=== PATIENT | male | born 1950 | race Caucasian/White ===

== ENCOUNTER 2017-08-07 07:20 | Day surgery (SDC) | payer MEDICARE ==
[~2017-08-07] VITALS: Ht 185.4 cm; Wt 79.4 kg
[~2017-08-07 07:20] MED LIST: ALLOPURINOL100 MG PO; AMLODIPINE5 MG OR; AMOXICILLIN500 MG OR; AUGMENTIN875TAB OR; BENICAR HCT1 TAB OR; BENICAR20 MG OR; BUMETANIDE0.5 MG OR; BUMETANIDE0.5 MG PO; BUMEX PO; C 250 PO; CALTRATE 600+D PO; CALTRATE 602 PO; CAPSAICIN EX; CIPRODEX1 ML OD; CLOTRIM/BET1 EX; CORTISPORIN OTI10 M2 AD; CYANOCOBALAM1000 MCG IJ; CYANOCOBALAM1000 MCG IM; CYANOCOBALAM1000 MCG PO; CYTOMEL5 MCG PO; ECOTRIN325 MG OR; FERROUS SULF325 M1 PO; FLUARIX QUADRIV1 IN1 IM; FLUZONE SPLT1 M1 IM; HYDROCODONE/ACE1 TAB PO; KEFLEX500 MG PO; KETOCONAZOLE2 % EX; KETOCONAZOLE200 MG PO; LEVOTHROID75 MCG PO; LEVOTHYROXIN150 MC1 PO; LEVOTHYROXIN75 MCG PO; LEVOTHYROXINE100 MCG PO; LIPITOR10 M1 PO; LISINOPRIL2.5 MG PO; LISINOPRIL5 MG PO; LORTAB 5/3255 MG PO; LOTENSIN5 MG OR; METOPROL TAR25 MG PO; MIRALAX3350 N1 PO; MULTIVITAMI9 PO; NEURONTIN100 MG OR; NIZORAL2 % EX; NORVASC PO; NORVASC5 MG PO; OMEGA OR; OXYCODONE15 MG OR; PERCOCET 5/325M1 TAB PO; PERCOCET1 TA3 PO; ROCALTROL0.5 MC1 OR; ROCALTROL0.5 MC1 PO; ROCEPHIN 1 GM1 GM IM; SENNOSIDES8.6 M1 OR; SODIUM BICAR650 MG PO; SYNTHROID50 MCG OR; ULORIC40 MG OR; ULORIC40 MG PO; VALSARTAN40 MG PO; VICODIN1 TAB OR; VITAMIN A PO; VITAMIN B-12500 MCG PO; VITAMIN D31000 UNI1 PO; VITAMIN OR; VOLTAREN1 % EX; ZEMPLAR1 MCG OR; ZEMPLAR2 MCG OR; ZESTRIL10 M1 PO; [UNRECOGNIZED DRUG - OTHER] OR; [UNRECOGNIZED DRUG - OTHER] OR; [UNRECOGNIZED DRUG - OTHER] PO; [UNRECOGNIZED DRUG - OTHER] PO; allo PO
[2017-08-07] MEDS ORDERED: PYRIDIUM200 MG PO (09:39)
[2017-08-07] MEDS ORDERED: TAMSULOSIN0.4 MG PO (09:39)
[2017-08-07] MEDS ORDERED: TRAMADOL HCL50 MG PO (09:39)
[2017-08-07] MEDS ORDERED: VESICARE5 M1 PO (09:39)
[2017-08-07] MEDS ORDERED: Levaquin PO (09:39)
[2017-08-07 11:12] VITALS: BP 168/93
== END 2017-08-07 11:50 | disposition home or self-care (01) ==
LOC: ORM 07:20
PROVIDERS: ATTEND Urology
PROC: 0T7D8DZ Dilation of Urethra with Intraluminal Device, Via Natural or Artificial Opening Endoscopic (ICD-10-PCS; principal; 2017-08-07)
DX: N40.1 Benign prostatic hyperplasia with lower urinary tract symptoms (principal); R39.14 Feeling of incomplete bladder emptying; R35.1 Nocturia; R39.15 Urgency of urination; N32.89 Other specified disorders of bladder; I10 Essential (primary) hypertension; E03.9 Hypothyroidism, unspecified
CPT/HCPCS: J1956; L8699

== ENCOUNTER 2017-08-09 18:06 | Emergency (ER) | payer MEDICARE ==
[~2017-08-09] VITALS: Ht 185.4 cm; Wt 100.0 kg
[~2017-08-09 18:06] MED LIST changes: +Levaquin PO; +PYRIDIUM200 MG PO; +TAMSULOSIN0.4 MG PO; +TRAMADOL HCL50 MG PO; +VESICARE5 M1 PO
[2017-08-09 18:32] LABS: HEMATOCRIT 27.8 % (39.0-50.0); HEMOGLOBIN 9.6 g/dl (14.0-18.0); IMMATURE GRANULOCYTES 0.7 % (0.0-1.0); MEAN CELL VOLUME 93.3 fL CALC (80.0-100.0); MEAN CORPUSCULAR HGB 32.2 pG CALC (26.0-32.0); MEAN CORPUSCULAR HGB CONC 34.5 g/L CALC (32.0-36.0); NEUT# 6.04 thou/uL (1.82-7.42); RED BLOOD COUNT 2.98 mill/uL (4.70-6.10)
[2017-08-09 18:44] LABS: ALBUMIN 3.9 g/dL (3.2-5.0); ALKALINE PHOSPHATASE 76 u/l (38-126); BILIRUBIN, TOTAL 1.6 mg/dL (0.0-1.4); BUN 58 mg/dL (8-23); BUN/CREATININE RATIO 12 (12-20 (CALC)); CALCIUM 8.8 mg/dL (8.4-10.2); CARBON DIOXIDE 18 mmol/l (22-30); CHLORIDE 82 mmol/l (95-108); CREATININE 4.7 mg/dL (0.7-1.3); GFR 13 ML/MIN (>=60 (CALC)); GFR FOR AFR.AMER. 15 ML/MIN (>=60 (CALC)); GLUCOSE 132 mg/dL (82-115); POTASSIUM 4.3 mmol/l (3.5-5.1); SGOT/AST 23 u/l (19-48); SGPT/ALT 30 u/l (11-66); TOTAL PROTEIN 6.9 g/dL (6.3-8.2)
[2017-08-09 18:47] LABS: ANION GAP 20 (6-22 (CALC)); ETHYL ALCOHOL 0 mg/dl (0-30)
[2017-08-09 18:48] LABS: SODIUM 116 mmol/l (137-146)
[2017-08-09 18:49] LABS: PROTHROMBIN TIME 10.9 SECONDS (9.0-12.5)
[2017-08-09] MEDS ORDERED: LEVAQUIN500 MG PO (18:55)
[2017-08-09 18:57] LABS: MYOGLOBIN 684 ng/mL (0 - 121)
[2017-08-09] MEDS ORDERED: PHOSLO667 M1 PO (18:58)
[2017-08-09] MEDS ORDERED: LEVOTHYROXIN100 MCG PO (18:59)
[2017-08-09] MEDS ORDERED: BUMETANIDE1 MG PO (18:59)
[2017-08-09 19:12] LABS: URINE BILIRUBIN - DIPSTICK NEGATIVE (NEGATIVE); URINE BLOOD DIPSTICK LARGE (NEGATIVE); URINE CLARITY SL CLOUDY; URINE COLOR ORANGE; URINE GLUCOSE - DIPSTICK NEGATIVE (NEGATIVE); URINE KETONE NEGATIVE (NEGATIVE); URINE LEUK ESTERASE NEGATIVE (NEGATIVE); URINE NITRITE - DIPSTICK POSITIVE (Negative); URINE PH 6.5 (4.5-8.0); URINE PROTEIN - DIPSTICK >=300 mg/dL (NEG-TRACE)
[2017-08-09 19:15] LABS: BARBITURATES NEGATIVE (NEGATIVE); COCAINE NEGATIVE (NEGATIVE); METHADONE NEGATIVE (NEGATIVE); OXCYCODONE NEGATIVE (NEGATIVE); TETRAHYDROCANNABIONOL NEGATIVE (NEGATIVE); TRICYLIC ANTIDEPRESSANTS NEGATIVE (NEGATIVE)
[2017-08-09 19:18] LABS: URINE RBC >100 RBC/hpf (0-5)
[2017-08-09 22:21] VITALS: BP 161/102
== END 2017-08-09 22:22 | disposition short-term general hospital (02) ==
LOC: ED 18:06
PROVIDERS: Emergency Medicine
DX: R55 Syncope and collapse (principal); R41.82 Altered mental status, unspecified; E87.1 Hypo-osmolality and hyponatremia; D64.9 Anemia, unspecified; N18.9 Chronic kidney disease, unspecified; S60.512A Abrasion of left hand, initial encounter; R00.0 Tachycardia, unspecified; Y92.239 Unspecified place in hospital as the place of occurrence of the external cause; Y92.481 Parking lot as the place of occurrence of the external cause; R42 Dizziness and giddiness; Z98.890 Other specified postprocedural states

== ENCOUNTER 2018-06-28 16:11 | Emergency (ER) | payer MEDICARE ==
[~2018-06-28] VITALS: Ht 185.4 cm; Wt 81.0 kg
[~2018-06-28 16:11] MED LIST changes: +BUMETANIDE1 MG PO; +CYANOCOBAL1000 MCG/M IM; +ELIQUIS5 MG PO; +LEVAQUIN500 MG PO; +LEVOTHYROXIN100 MCG PO; +LORTAB 1010 MG PO; +LOSARTAN POT25 MG PO; +PANTOPRAZOLE SO40 MG PO; +PHOSLO667 M1 PO; +PROTEIN LIQUID; +PROTONIX40 M2 PO; +[UNRECOGNIZED DRUG - CODE] PO
[2018-06-28 16:57] LABS: HEMATOCRIT 29.2 % (39.0-50.0); HEMOGLOBIN 9.5 g/dl (14.0-18.0); IMMATURE GRANULOCYTES 0.3 % (0.0-5.0); MEAN CELL VOLUME 101.4 fL CALC (80.0-100.0); MEAN CORPUSCULAR HGB CONC 32.5 g/L CALC (32.0-36.0); NEUT# 10.2 thou/uL (1.82-7.42); RED BLOOD COUNT 2.88 mill/uL (4.70-6.10)
[2018-06-28 17:01] LABS: ALBUMIN 3.7 g/dL (3.2-5.0); BILIRUBIN, TOTAL 2.1 mg/dL (0.0-1.4); CREATININE 4.2 mg/dL (0.7-1.3); POTASSIUM 4.3 mmol/l (3.5-5.1); PROTHROMBIN TIME 10.7 SECONDS (9.0-12.5); TOTAL PROTEIN 6.2 g/dL (6.3-8.2)
[2018-06-28 17:13] VITALS: BP 115/81
== END 2018-06-28 17:13 | disposition short-term general hospital (02) ==
LOC: ED 16:11
PROVIDERS: Emergency Medicine
PROC: 0BH17EZ Insertion of Endotracheal Airway into Trachea, Via Natural or Artificial Opening (ICD-10-PCS; principal; 2018-06-28)
PROC: 0T9B70Z Drainage of Bladder with Drainage Device, Via Natural or Artificial Opening (ICD-10-PCS; 2018-06-28)
DX: I63.9 Cerebral infarction, unspecified (principal); R29.716 NIHSS score 16; I12.0 Hypertensive chronic kidney disease with stage 5 chronic kidney disease or end stage renal disease; N18.6 End stage renal disease; Z99.2 Dependence on renal dialysis; R00.0 Tachycardia, unspecified; I95.9 Hypotension, unspecified

== ENCOUNTER 2019-03-09 16:59 | Emergency (ER) | payer MEDICARE, OTHER ==
[~2019-03-09] VITALS: Ht 185.4 cm; Wt 81.8 kg
[2019-03-09] MEDS ORDERED: RENVELA800 MG PO (17:21)
[2019-03-09] MEDS ORDERED: TRAMADOL HCL50 MG PO (17:22)
[2019-03-09] MEDS ORDERED: TAMSULOSIN HCL0.4 MG PO (17:24)
[2019-03-09] MEDS ORDERED: ATORVASTATIN CA40 MG PO (17:25)
[2019-03-09] MEDS ORDERED: METOPROL TAR25 MG PO (17:25)
[2019-03-09 19:22] VITALS: BP 144/73
== END 2019-03-09 19:26 | disposition home or self-care (01) ==
LOC: ED 16:59
PROC: 0HQ2XZZ Repair Right Ear Skin, External Approach (ICD-10-PCS; principal; 2019-03-09)
PROC: 0HQ1XZZ Repair Face Skin, External Approach (ICD-10-PCS; 2019-03-09)
PROC: 2W3CX1Z Immobilization of Right Lower Arm using Splint (ICD-10-PCS; 2019-03-09)
DX: S52.501A Unspecified fracture of the lower end of right radius, initial encounter for closed fracture (principal); S01.81XA Laceration without foreign body of other part of head, initial encounter; S01.311A Laceration without foreign body of right ear, initial encounter; F03.90 Unspecified dementia, unspecified severity, without behavioral disturbance, psychotic disturbance, mood disturbance, and anxiety; I12.0 Hypertensive chronic kidney disease with stage 5 chronic kidney disease or end stage renal disease; N18.6 End stage renal disease; E03.9 Hypothyroidism, unspecified; W01.0XXA Fall on same level from slipping, tripping and stumbling without subsequent striking against object, initial encounter; Y92.099 Unspecified place in other non-institutional residence as the place of occurrence of the external cause

== ENCOUNTER 2019-06-06 18:09 | Emergency (ER) | payer MEDICARE, OTHER ==
[~2019-06-06] VITALS: Ht 185.4 cm; Wt 90.9 kg
[~2019-06-06 18:09] MED LIST changes: +ATORVASTATIN CA40 MG PO; +RENVELA800 MG PO; +TAMSULOSIN HCL0.4 MG PO
[2019-06-06] MEDS ORDERED: HYDROCO/APAP1 TA9 PO (18:44)
[2019-06-06 19:01] VITALS: BP 130/68
== END 2019-06-06 19:15 ==
LOC: ED 18:09
PROC: 2W3CX1Z Immobilization of Right Lower Arm using Splint (ICD-10-PCS; principal; 2019-06-06)
DX: M25.531 Pain in right wrist (principal); S52.501D Unspecified fracture of the lower end of right radius, subsequent encounter for closed fracture with routine healing; W19.XXXD Unspecified fall, subsequent encounter; I12.0 Hypertensive chronic kidney disease with stage 5 chronic kidney disease or end stage renal disease; N18.6 End stage renal disease; E03.9 Hypothyroidism, unspecified; F03.90 Unspecified dementia, unspecified severity, without behavioral disturbance, psychotic disturbance, mood disturbance, and anxiety; W17.89XA Other fall from one level to another, initial encounter; Y93.89 Activity, other specified; Y92.099 Unspecified place in other non-institutional residence as the place of occurrence of the external cause

== ENCOUNTER 2020-03-06 13:19 | Emergency (ER) | payer MEDICARE, OTHER ==
[~2020-03-06] VITALS: Ht 185.4 cm; Wt 86.3 kg
[~2020-03-06 13:19] MED LIST changes: +HYDROCO/APAP1 TA9 PO
[2020-03-06 15:02] VITALS: BP 120/61
[2020-03-06] MEDS ORDERED: CYMBALTA30 MG PO (16:00)
[2020-03-06] MEDS ORDERED: OLMESARTAN MEDO20 MG PO (16:01)
== END 2020-03-06 15:14 ==
LOC: ED 13:19
DX: Z20.828 Contact with and (suspected) exposure to other viral communicable diseases (principal); I12.0 Hypertensive chronic kidney disease with stage 5 chronic kidney disease or end stage renal disease; N18.6 End stage renal disease; J44.9 Chronic obstructive pulmonary disease, unspecified; E03.9 Hypothyroidism, unspecified; F01.50 Vascular dementia, unspecified severity, without behavioral disturbance, psychotic disturbance, mood disturbance, and anxiety; Z99.2 Dependence on renal dialysis

== ENCOUNTER 2020-07-18 10:41 | Emergency (ER) | payer MEDICARE, OTHER ==
[~2020-07-18] VITALS: Ht 185.4 cm; Wt 100.0 kg
[~2020-07-18 10:41] MED LIST changes: +CYMBALTA30 MG PO; +OLMESARTAN MEDO20 MG PO
[2020-07-18] MEDS ORDERED: LIPITOR40 M1 PO (11:20)
[2020-07-18] MEDS ORDERED: CYANOCOBAL1000 MCG/M (11:21)
[2020-07-18] MEDS ORDERED: LIOTHYRONINE PO (11:22)
[2020-07-18] MEDS ORDERED: NEPHRO VITAMINS (11:23)
[2020-07-18] MEDS ORDERED: TYLENOL500 MG PO (11:26)
[2020-07-18] MEDS ORDERED: BISACODYL10 M1 RE (11:26)
[2020-07-18 11:32] LABS: HEMATOCRIT 28.2 % (39.0-50.0); HEMOGLOBIN 8.8 g/dl (14.0-18.0); IMMATURE GRANULOCYTES 0.5 % (0.0-5.0); MEAN CELL VOLUME 104.4 fL CALC (80.0-100.0); MEAN CORPUSCULAR HGB 32.6 pG CALC (26.0-32.0); MEAN CORPUSCULAR HGB CONC 31.2 g/dL CAL (32.0-36.0); NEUT# 9.82 thou/uL (1.82-7.42); RED BLOOD COUNT 2.7 mill/uL (4.70-6.10); RED CELL DISTRI WIDTH 14.6 % (11.5-15.5)
[2020-07-18 11:49] LABS: ALBUMIN 3.4 g/dL (3.2-5.0); BILIRUBIN, TOTAL 1.5 mg/dL (0.0-1.4); CREATININE 4.8 mg/dL (0.7-1.3); POTASSIUM 5.1 mmol/l (3.5-5.1); TOTAL PROTEIN 6.1 g/dL (6.3-8.2)
[2020-07-18 12:27] LABS: ACT PARTIAL THROMBO TIME 33.1 SECONDS (20.0-32.5); INTERNATIONAL NORMALIZED RATIO 1.2 RATIO (0.7-1.3); PROTHROMBIN TIME 11.5 SECONDS (9.0-12.5)
[2020-07-18 13:37] VITALS: BP 162/72
== END 2020-07-18 13:38 ==
LOC: ED 10:41
PROVIDERS: Student in an Organized Health Care Education/Training Program
DX: T81.41XA Infection following a procedure, superficial incisional surgical site, initial encounter (principal); L03.114 Cellulitis of left upper limb; I12.0 Hypertensive chronic kidney disease with stage 5 chronic kidney disease or end stage renal disease; N18.6 End stage renal disease; E03.9 Hypothyroidism, unspecified; K21.9 Gastro-esophageal reflux disease without esophagitis; J44.9 Chronic obstructive pulmonary disease, unspecified; F32.9 Major depressive disorder, single episode, unspecified; F01.50 Vascular dementia, unspecified severity, without behavioral disturbance, psychotic disturbance, mood disturbance, and anxiety; Y83.2 Surgical operation with anastomosis, bypass or graft as the cause of abnormal reaction of the patient, or of later complication, without mention of misadventure at the time of the procedure; Z86.73 Personal history of transient ischemic attack (TIA), and cerebral infarction without residual deficits; Z99.2 Dependence on renal dialysis; Z20.828 Contact with and (suspected) exposure to other viral communicable diseases

== ENCOUNTER 2020-09-12 20:17 | Emergency (ER) | payer MEDICARE, OTHER ==
[~2020-09-12] VITALS: Ht 185.4 cm; Wt 118.2 kg
[~2020-09-12 20:17] MED LIST changes: +BISACODYL10 M1 RE; +CYANOCOBAL1000 MCG/M; +LIOTHYRONINE PO; +LIPITOR40 M1 PO; +NEPHRO VITAMINS; +TYLENOL500 MG PO
[2020-09-12] MEDS ORDERED: ALLOPURINOL100 MG PO (21:28)
[2020-09-13 08:35] VITALS: BP 170/78
== END 2020-09-13 08:35 ==
LOC: ED 20:17
PROC: 0HQ0XZZ Repair Scalp Skin, External Approach (ICD-10-PCS; principal; 2020-09-12)
DX: S01.81XA Laceration without foreign body of other part of head, initial encounter (principal); S01.312A Laceration without foreign body of left ear, initial encounter; T84.028A Dislocation of other internal joint prosthesis, initial encounter; I12.0 Hypertensive chronic kidney disease with stage 5 chronic kidney disease or end stage renal disease; N18.6 End stage renal disease; E03.9 Hypothyroidism, unspecified; K21.9 Gastro-esophageal reflux disease without esophagitis; J44.9 Chronic obstructive pulmonary disease, unspecified; F32.9 Major depressive disorder, single episode, unspecified; F01.50 Vascular dementia, unspecified severity, without behavioral disturbance, psychotic disturbance, mood disturbance, and anxiety; W01.0XXA Fall on same level from slipping, tripping and stumbling without subsequent striking against object, initial encounter; Y92.009 Unspecified place in unspecified non-institutional (private) residence as the place of occurrence of the external cause; Z99.2 Dependence on renal dialysis; Z86.73 Personal history of transient ischemic attack (TIA), and cerebral infarction without residual deficits

== ENCOUNTER 2020-10-29 15:50 | Emergency (ER) | payer MEDICARE, OTHER ==
[~2020-10-29] VITALS: Ht 185.4 cm; Wt 108.0 kg
[2020-10-29 17:30] LABS: HEMATOCRIT 30.4 % (39.0-50.0); HEMOGLOBIN 9.4 g/dl (14.0-18.0); IMMATURE GRANULOCYTES 0.5 % (0.0-5.0); MEAN CELL VOLUME 105.9 fL CALC (80.0-100.0); MEAN CORPUSCULAR HGB 32.8 pG CALC (26.0-32.0); MEAN CORPUSCULAR HGB CONC 30.9 g/dL CAL (32.0-36.0); NEUT# 2.12 thou/uL (1.82-7.42); RED BLOOD COUNT 2.87 mill/uL (4.70-6.10); RED CELL DISTRI WIDTH 16.1 % (11.5-15.5)
[2020-10-29 17:46] LABS: ALBUMIN 3.9 g/dL (3.2-5.0); BILIRUBIN, TOTAL 1.2 mg/dL (0.0-1.4); CREATININE 3.8 mg/dL (0.7-1.3); POTASSIUM 4.5 mmol/l (3.5-5.1); TOTAL PROTEIN 6.5 g/dL (6.3-8.2)
[2020-10-29 22:27] VITALS: BP 120/74
== END 2020-10-29 22:27 ==
LOC: ED 15:50
DX: T82.7XXA Infection and inflammatory reaction due to other cardiac and vascular devices, implants and grafts, initial encounter (principal); A41.9 Sepsis, unspecified organism; L03.113 Cellulitis of right upper limb; I12.0 Hypertensive chronic kidney disease with stage 5 chronic kidney disease or end stage renal disease; N18.6 End stage renal disease; E03.9 Hypothyroidism, unspecified; K21.9 Gastro-esophageal reflux disease without esophagitis; J44.9 Chronic obstructive pulmonary disease, unspecified; F32.9 Major depressive disorder, single episode, unspecified; F01.50 Vascular dementia, unspecified severity, without behavioral disturbance, psychotic disturbance, mood disturbance, and anxiety; Z99.2 Dependence on renal dialysis; Z87.820 Personal history of traumatic brain injury; Z86.73 Personal history of transient ischemic attack (TIA), and cerebral infarction without residual deficits; Z87.39 Personal history of other diseases of the musculoskeletal system and connective tissue; Z20.822 Contact with and (suspected) exposure to COVID-19

== ENCOUNTER 2021-06-20 16:44 | Emergency (ER) | payer MEDICARE, OTHER ==
[~2021-06-20] VITALS: Ht 185.4 cm; Wt 90.0 kg
[2021-06-20 17:28] LABS: HEMATOCRIT 28.8 % (39.0-50.0); HEMOGLOBIN 9.4 g/dl (14.0-18.0); IMMATURE GRANULOCYTES 0.4 % (0.0-5.0); MEAN CELL VOLUME 107.5 fL CALC (80.0-100.0); MEAN CORPUSCULAR HGB 35.1 pG CALC (26.0-32.0); MEAN CORPUSCULAR HGB CONC 32.6 g/dL CAL (32.0-36.0); NEUT# 3.84 thou/uL (1.82-7.42); RED BLOOD COUNT 2.68 mill/uL (4.70-6.10); RED CELL DISTRI WIDTH 14.2 % (11.5-15.5)
[2021-06-20 17:41] LABS: ALBUMIN 3.6 g/dL (3.2-5.0); ALKALINE PHOSPHATASE 86 u/l (38-126); AMYLASE 123 u/l (30-110); ANION GAP 13 (6-22 (CALC)); BILIRUBIN, TOTAL 1.2 mg/dL (0.0-1.4); CARBON DIOXIDE 32 mmol/l (22-30); CHLORIDE 92 mmol/l (95-108); GFR 10 ML/MIN (>=60 (CALC)); GFR FOR AFR.AMER. 12 ML/MIN (>=60 (CALC)); LIPASE 295 u/l (23-300); POTASSIUM 4.5 mmol/l (3.5-5.1); SGOT/AST 31 u/l (19-48); SODIUM 132 mmol/l (137-146); TOTAL PROTEIN 6.5 g/dL (6.3-8.2)
[2021-06-20 17:44] LABS: BUN 57 mg/dL (8-23); BUN/CREATININE RATIO 10 (12-20 (CALC)); CREATININE 5.8 mg/dL (0.7-1.3)
[2021-06-20 17:59] LABS: ACT PARTIAL THROMBO TIME 24.1 SECONDS (20.0-32.5)
[2021-06-20] MEDS ORDERED: ARTIFI TEAR1 OU (19:50)
[2021-06-20] MEDS ORDERED: ELIQUIS5 MG PO (19:51)
[2021-06-20] MEDS ORDERED: DULOXETINE HCL30 MG PO (19:51)
[2021-06-20] MEDS ORDERED: LEVOTHYROXIN100 MC1 PO (19:52)
[2021-06-20] MEDS ORDERED: FOLIC ACID1 M1 PO (19:52)
[2021-06-20] MEDS ORDERED: LIOTHYRONINE5 MCG PO (19:53)
[2021-06-20] MEDS ORDERED: METOPROLOL SUCC50 MG PO (19:54)
[2021-06-20] MEDS ORDERED: NEPHRO-VIT1 PO (19:55)
[2021-06-20] MEDS ORDERED: BENICAR40 MG PO (19:55)
[2021-06-20] MEDS ORDERED: PROTONIX40 M2 PO (19:56)
[2021-06-20] MEDS ORDERED: PRO STAT PO (19:57)
[2021-06-20] MEDS ORDERED: RENAGEL 800MG800 MG PO (19:58)
[2021-06-20] MEDS ORDERED: SODIUM BICARBI650 MG PO (19:58)
[2021-06-20] MEDS ORDERED: TAMSULOSIN HCL0.4 MG PO (19:58)
[2021-06-20] MEDS ORDERED: VITAMIN D31000 UNI1 PO (19:59)
[2021-06-20] MEDS ORDERED: VITAMIN C500 M4 PO (19:59)
[2021-06-20 20:00] VITALS: BP 111/60
[2021-06-20] MEDS ORDERED: LEVAQUIN750 M1 PO (20:05)
== END 2021-06-20 20:38 ==
LOC: ED 16:44
DX: S00.01XA Abrasion of scalp, initial encounter (principal); U07.1 COVID-19; J12.82 Pneumonia due to coronavirus disease 2019; I12.0 Hypertensive chronic kidney disease with stage 5 chronic kidney disease or end stage renal disease; N18.6 End stage renal disease; E03.9 Hypothyroidism, unspecified; K21.9 Gastro-esophageal reflux disease without esophagitis; J44.9 Chronic obstructive pulmonary disease, unspecified; N40.0 Benign prostatic hyperplasia without lower urinary tract symptoms; F32.A Depression, unspecified; F01.50 Vascular dementia, unspecified severity, without behavioral disturbance, psychotic disturbance, mood disturbance, and anxiety; W18.30XA Fall on same level, unspecified, initial encounter; Y92.099 Unspecified place in other non-institutional residence as the place of occurrence of the external cause; Z86.73 Personal history of transient ischemic attack (TIA), and cerebral infarction without residual deficits; Z99.2 Dependence on renal dialysis

== ENCOUNTER 2021-12-15 07:59 | Emergency (ER) | payer MEDICARE, OTHER ==
[~2021-12-15] VITALS: Ht 185.4 cm; Wt 90.0 kg
[2021-12-15] VITALS (10 sets, daily range): BP systolic 117–139; BP diastolic 68–87
[~2021-12-15 07:59] MED LIST changes: +ARTIFI TEAR1 OU; +BENICAR40 MG PO; +DULOXETINE HCL30 MG PO; +FOLIC ACID1 M1 PO; +LEVAQUIN750 M1 PO; +LEVOTHYROXIN100 MC1 PO; +LIOTHYRONINE5 MCG PO; +METOPROLOL SUCC50 MG PO; +NEPHRO-VIT1 PO; +PRO STAT PO; +RENAGEL 800MG800 MG PO; +SODIUM BICARBI650 MG PO; +VITAMIN C500 M4 PO
[2021-12-15] MEDS ORDERED: CYMBALTA20 MG PO (08:17)
[2021-12-15 09:35] LABS: HEMATOCRIT 28.9 % (39.0-50.0); HEMOGLOBIN 9.4 g/dl (14.0-18.0)
== END 2021-12-15 10:50 | disposition home or self-care (01) ==
LOC: ED 07:59
PROVIDERS: Family Medicine
DX: L76.21 Postprocedural hemorrhage of skin and subcutaneous tissue following a dermatologic procedure (principal); I12.0 Hypertensive chronic kidney disease with stage 5 chronic kidney disease or end stage renal disease; N18.6 End stage renal disease; E03.9 Hypothyroidism, unspecified; J44.9 Chronic obstructive pulmonary disease, unspecified; F01.50 Vascular dementia, unspecified severity, without behavioral disturbance, psychotic disturbance, mood disturbance, and anxiety; K21.9 Gastro-esophageal reflux disease without esophagitis; F32.A Depression, unspecified; Y83.8 Other surgical procedures as the cause of abnormal reaction of the patient, or of later complication, without mention of misadventure at the time of the procedure; Z86.718 Personal history of other venous thrombosis and embolism; Z79.01 Long term (current) use of anticoagulants; Z99.2 Dependence on renal dialysis; Z86.73 Personal history of transient ischemic attack (TIA), and cerebral infarction without residual deficits; Z85.828 Personal history of other malignant neoplasm of skin

== ENCOUNTER 2021-12-16 15:33 | Emergency (ER) | payer MEDICARE, OTHER ==
[~2021-12-16] VITALS: Ht 185.4 cm; Wt 89.0 kg
[~2021-12-16 15:33] MED LIST changes: +CYMBALTA20 MG PO
[2021-12-16 15:42] VITALS: BP 154/72
[2021-12-16 16:01] VITALS: BP 120/66
[2021-12-16 16:37] VITALS: BP 120/66
== END 2021-12-16 16:37 | disposition home or self-care (01) ==
LOC: ED 15:33
DX: L76.21 Postprocedural hemorrhage of skin and subcutaneous tissue following a dermatologic procedure (principal); I12.0 Hypertensive chronic kidney disease with stage 5 chronic kidney disease or end stage renal disease; N18.6 End stage renal disease; J44.9 Chronic obstructive pulmonary disease, unspecified; E03.9 Hypothyroidism, unspecified; K21.9 Gastro-esophageal reflux disease without esophagitis; F32.A Depression, unspecified; F01.50 Vascular dementia, unspecified severity, without behavioral disturbance, psychotic disturbance, mood disturbance, and anxiety; Y83.8 Other surgical procedures as the cause of abnormal reaction of the patient, or of later complication, without mention of misadventure at the time of the procedure; Z86.73 Personal history of transient ischemic attack (TIA), and cerebral infarction without residual deficits; Z99.2 Dependence on renal dialysis

== ENCOUNTER 2022-01-06 17:00 | Emergency (ER) | payer MEDICARE, OTHER ==
[~2022-01-06] VITALS: Ht 185.4 cm; Wt 136.0 kg
[2022-01-06 17:29] VITALS: BP 101/63
[2022-01-06 18:18] LABS: HEMATOCRIT 24.2 % (39.0-50.0); HEMOGLOBIN 7.7 g/dl (14.0-18.0); IMMATURE GRANULOCYTES 0.8 % (0.0-5.0); MEAN CELL VOLUME 107.1 fL CALC (80.0-100.0); MEAN CORPUSCULAR HGB 34.1 pG CALC (26.0-32.0); MEAN CORPUSCULAR HGB CONC 31.8 g/dL CAL (32.0-36.0); NEUT# 9.77 thou/uL (1.82-7.42); RED BLOOD COUNT 2.26 mill/uL (4.70-6.10); RED CELL DISTRI WIDTH 17.6 % (11.5-15.5)
[2022-01-06 18:32] LABS: BILIRUBIN, TOTAL 1.1 mg/dL (0.0-1.4); POTASSIUM 4.8 mmol/l (3.5-5.1); TOTAL PROTEIN 5.3 g/dL (6.3-8.2)
[2022-01-06 18:33] LABS: CREATININE 4.2 mg/dL (0.7-1.3)
[2022-01-06] MEDS ORDERED: OMNICEF300 M1 PO (18:42)
[2022-01-07] MEDS ORDERED: LORTAB 1010 MG PO (09:43)
[2022-01-07] MEDS ORDERED: PAIN RELIEF325 MG PO (09:45)
== END 2022-01-06 21:17 | disposition home or self-care (01) ==
LOC: ED 17:00
PROVIDERS: Internal Medicine
DX: T81.41XA Infection following a procedure, superficial incisional surgical site, initial encounter (principal); L03.112 Cellulitis of left axilla; D64.9 Anemia, unspecified; E87.1 Hypo-osmolality and hyponatremia; I12.0 Hypertensive chronic kidney disease with stage 5 chronic kidney disease or end stage renal disease; N18.6 End stage renal disease; E03.9 Hypothyroidism, unspecified; K21.9 Gastro-esophageal reflux disease without esophagitis; J44.9 Chronic obstructive pulmonary disease, unspecified; N40.0 Benign prostatic hyperplasia without lower urinary tract symptoms; F32.A Depression, unspecified; F01.50 Vascular dementia, unspecified severity, without behavioral disturbance, psychotic disturbance, mood disturbance, and anxiety; Y83.2 Surgical operation with anastomosis, bypass or graft as the cause of abnormal reaction of the patient, or of later complication, without mention of misadventure at the time of the procedure; Z99.2 Dependence on renal dialysis; Z86.73 Personal history of transient ischemic attack (TIA), and cerebral infarction without residual deficits

== ENCOUNTER 2022-01-06 22:37 | Observation (INO) | payer MEDICARE, OTHER ==
[~2022-01-06] VITALS: Ht 185.4 cm; Wt 89.0 kg
[~2022-01-06 22:37] MED LIST changes: +OMNICEF300 M1 PO
--- NOTE | 2022-01-06 22:55 | NUR ---
PATIENT IN ROOM 14
--- NOTE | 2022-01-06 23:48 | NUR ---
PT RESTING ON STRETCHER. CALL LIGHT WITHIN REACH
[2022-01-07] VITALS (17 sets, daily range): BP systolic 90–120; BP diastolic 55–78
--- NOTE | 2022-01-07 00:31 | NUR ---
PT BACK TO ROOM FROM ULTRASOUND.
[2022-01-07 01:28] LABS: INTERNATIONAL NORMALIZED RATIO 1.1 RATIO (0.7-1.3); PROTHROMBIN TIME 11.4 SECONDS (9.0-12.5)
--- NOTE | 2022-01-07 02:00 | NUR ---
PT SLEEPING ON STRETCHER. NO APPARENT NEEDS . CALL LIGHT WITHIN REACH
--- NOTE | 2022-01-07 04:51 | NUR ---
PT ARRIVED TO THE FLOOR ON STRETCHER, PT AWAKE AND ALERT, PT SLIGHTLY CONFUSED, NO DISTRESS NOTED, BED ALARM ON AND IN LOW POSITION, CALL LIGHT IN REACH, WAS TOLD IN REPORT PT HAS O IV AND MD AWARE.
--- NOTE | 2022-01-07 06:50 | NUR ---
RECIEVED REPORT FROM [email or web address].
--- NOTE | 2022-01-07 07:15 | NUR ---
PT RESTING IN FOWLERS POSITION. A/OX3 WITH SOME CONFUSION. ASSESSMENT AND VS COMPLETED. HEART RHYTHM NORMAL WITH TELE IN PLACE. RESPIRATIONS UNLABORED/SHALLLOW BOWEL SOUNDS ACTIVE. PT C/O MINOR PAIN. PT DENIES PAIN MEDICATION AT THE MOMENT. PT REQUESTED MORE COFFEE .COFFEE PROVIDED. PT DENIES ANY ADDITIONAL NEEDS AT THE MOMENT. ALL SAFETY PRECAUTIONS IN PLACE WITH CALL LIGHT IN REACH.
[2022-01-07] MEDS ORDERED: LORTAB 1010 MG PO (09:43)
[2022-01-07] MEDS ORDERED: PAIN RELIEF325 MG PO (09:45)
--- NOTE | 2022-01-07 11:16 | NUR ---
COVID SWAB COLLECTED AT THIS TIME. PT TOLERATED WELL
--- NOTE | 2022-01-07 12:07 | NUR ---
Discharge instructions given. Patient verbalizes understanding of same. Discharged in stable condition via Wheelchair to [facility] with staff. All belongings sent with pt.
== END 2022-01-07 12:07 ==
LOC: ED 22:37 → ED-I 01-07 02:05 → ED 01-07 02:26 → ICU 01-07 02:27
PROVIDERS: Emergency Medicine; ADMIT Hospitalist; ATTEND Hospitalist
DX: T81.89XA Other complications of procedures, not elsewhere classified, initial encounter (principal); T81.72XA Complication of vein following a procedure, not elsewhere classified, initial encounter; I80.8 Phlebitis and thrombophlebitis of other sites; I12.0 Hypertensive chronic kidney disease with stage 5 chronic kidney disease or end stage renal disease; N18.6 End stage renal disease; I69.951 Hemiplegia and hemiparesis following unspecified cerebrovascular disease affecting right dominant side; E03.9 Hypothyroidism, unspecified; K21.9 Gastro-esophageal reflux disease without esophagitis; J44.9 Chronic obstructive pulmonary disease, unspecified; G70.9 Myoneural disorder, unspecified; F32.A Depression, unspecified; F01.50 Vascular dementia, unspecified severity, without behavioral disturbance, psychotic disturbance, mood disturbance, and anxiety; Y83.2 Surgical operation with anastomosis, bypass or graft as the cause of abnormal reaction of the patient, or of later complication, without mention of misadventure at the time of the procedure; Z99.2 Dependence on renal dialysis

== ENCOUNTER 2022-01-13 12:11 | Observation (INO) | payer MEDICARE, OTHER ==
[~2022-01-13] VITALS: Ht 185.4 cm; Wt 98.2 kg
[~2022-01-13 12:11] MED LIST changes: +PAIN RELIEF325 MG PO
[2022-01-13 13:28] LABS: HEMOGLOBIN 7.1 g/dl (14.0-18.0); IMMATURE GRANULOCYTES 4.6 % (0.0-5.0); MEAN CORPUSCULAR HGB 33.6 pG CALC (26.0-32.0); MEAN CORPUSCULAR HGB CONC 30.9 g/dL CAL (32.0-36.0); NEUT# 5.11 thou/uL (1.82-7.42); RED BLOOD COUNT 2.11 mill/uL (4.70-6.10); RED CELL DISTRI WIDTH 16.2 % (11.5-15.5)
[2022-01-13 13:45] LABS: BILIRUBIN, TOTAL 1.2 mg/dL (0.0-1.4); CREATININE 3.7 mg/dL (0.7-1.3)
[2022-01-13 13:46] LABS: ACT PARTIAL THROMBO TIME 28.6 SECONDS (20.0-32.5); PROTHROMBIN TIME 10.5 SECONDS (9.0-12.5)
[2022-01-13 13:47] LABS: POTASSIUM 3.7 mmol/l (3.5-5.1)
[2022-01-13 15:35] VITALS: BP 104/53
[2022-01-13 16:20] VITALS: BP 131/84
[2022-01-13] MEDS ORDERED: CEFUROXIME250 MG PO (16:21)
[2022-01-13 18:46] VITALS: BP 119/61
[2022-01-13 21:53] VITALS: BP 121/65
[2022-01-14 00:38] VITALS: BP 136/62
[2022-01-14 04:12] VITALS: BP 119/59
[2022-01-14 04:58] LABS: HEMATOCRIT 25.8 % (39.0-50.0); HEMOGLOBIN 8.1 g/dl (14.0-18.0); MEAN CELL VOLUME 108.4 fL CALC (80.0-100.0); MEAN CORPUSCULAR HGB CONC 31.4 g/dL CAL (32.0-36.0); RED BLOOD COUNT 2.38 mill/uL (4.70-6.10); RED CELL DISTRI WIDTH 17.3 % (11.5-15.5)
[2022-01-14 05:15] LABS: CREATININE 2.8 mg/dL (0.7-1.3); POTASSIUM 3.9 mmol/l (3.5-5.1)
[2022-01-14 09:39] VITALS: BP 126/71
[2022-01-14 10:53] VITALS: BP 120/71
[2022-01-14 14:55] VITALS: BP 135/75
== END 2022-01-14 14:45 ==
LOC: ED 12:11 → ED-I 14:50 → ED 15:57 → MS2 15:58
PROVIDERS: ADMIT Internal Medicine; ATTEND Internal Medicine
PROC: 5A1D70Z Performance of Urinary Filtration, Intermittent, Less than 6 Hours Per Day (ICD-10-PCS; principal; 2022-01-13)
PROC: 30233N1 Transfusion of Nonautologous Red Blood Cells into Peripheral Vein, Percutaneous Approach (ICD-10-PCS; 2022-01-13)
DX: T84.028A Dislocation of other internal joint prosthesis, initial encounter (principal); S00.81XA Abrasion of other part of head, initial encounter; S51.811A Laceration without foreign body of right forearm, initial encounter; I12.0 Hypertensive chronic kidney disease with stage 5 chronic kidney disease or end stage renal disease; N18.6 End stage renal disease; Z99.2 Dependence on renal dialysis; D63.1 Anemia in chronic kidney disease; E87.1 Hypo-osmolality and hyponatremia; N25.81 Secondary hyperparathyroidism of renal origin; J44.9 Chronic obstructive pulmonary disease, unspecified; E03.9 Hypothyroidism, unspecified; F01.50 Vascular dementia, unspecified severity, without behavioral disturbance, psychotic disturbance, mood disturbance, and anxiety; G70.9 Myoneural disorder, unspecified; K21.9 Gastro-esophageal reflux disease without esophagitis; F32.A Depression, unspecified; W07.XXXA Fall from chair, initial encounter; Y92.099 Unspecified place in other non-institutional residence as the place of occurrence of the external cause; Z86.73 Personal history of transient ischemic attack (TIA), and cerebral infarction without residual deficits
CPT/HCPCS: G0378; P9016; Q5106 EC

== ENCOUNTER 2022-01-19 12:57 | Emergency (ER) | payer MEDICARE, OTHER ==
[2022-01-19] VITALS (35 sets, daily range): BP systolic 78–151; BP diastolic 42–131
[~2022-01-19] VITALS: Ht 185.4 cm; Wt 89.0 kg
[~2022-01-19 12:57] MED LIST changes: +CEFUROXIME250 MG PO
[2022-01-19 13:59] LABS: HEMATOCRIT 26.6 % (39.0-50.0); HEMOGLOBIN 8.2 g/dl (14.0-18.0); IMMATURE GRANULOCYTES 3.7 % (0.0-5.0); MEAN CELL VOLUME 112.2 fL CALC (80.0-100.0); MEAN CORPUSCULAR HGB 34.6 pG CALC (26.0-32.0); MEAN CORPUSCULAR HGB CONC 30.8 g/dL CAL (32.0-36.0); NEUT# 16.49 thou/uL (1.82-7.42); RED BLOOD COUNT 2.37 mill/uL (4.70-6.10); RED CELL DISTRI WIDTH 17.8 % (11.5-15.5)
[2022-01-19 14:19] LABS: BILIRUBIN, TOTAL 1.5 mg/dL (0.0-1.4); POTASSIUM 3.9 mmol/l (3.5-5.1); TOTAL PROTEIN 5.3 g/dL (6.3-8.2)
[2022-01-19] MEDS ORDERED: TOPROL XL25 MG PO (14:56)
[2022-01-19] MEDS ORDERED: RENVELA800 MG PO (14:56)
[2022-01-19] MEDS ORDERED: PANTOPRAZOLE SO40 M1 PO (14:56)
[2022-01-19] MEDS ORDERED: CEFUROXIME500 MG PO (14:57)
[2022-01-19] MEDS ORDERED: OLMESARTAN MEDO40 MG (14:58)
[2022-01-19] MEDS ORDERED: DOXYCYCLINE HY100 MG PO (14:59)
[2022-01-19] MEDS ORDERED: HYDROCODONE BIT1 TA7 (14:59)
[2022-01-19] MEDS ORDERED: CEFDINIR300 MG PO (15:00)
[2022-01-19] MEDS ORDERED: DULOXETINE HCL20 MG (15:01)
== END 2022-01-19 21:13 | disposition short-term general hospital (02) ==
LOC: ED 12:57
PROVIDERS: Family Medicine
PROC: 06HY33Z Insertion of Infusion Device into Lower Vein, Percutaneous Approach (ICD-10-PCS; principal; 2022-01-19)
DX: A41.9 Sepsis, unspecified organism (principal); R79.89 Other specified abnormal findings of blood chemistry; I12.0 Hypertensive chronic kidney disease with stage 5 chronic kidney disease or end stage renal disease; E11.22 Type 2 diabetes mellitus with diabetic chronic kidney disease; N18.6 End stage renal disease; Z99.2 Dependence on renal dialysis; Z86.73 Personal history of transient ischemic attack (TIA), and cerebral infarction without residual deficits; Z20.822 Contact with and (suspected) exposure to COVID-19
CPT/HCPCS: J1644